=== PATIENT | male | born 1985 | race Caucasian/White ===

== ENCOUNTER 2024-03-15 20:27 | Emergency (ER) | payer BC ==
[~2024-03-15] VITALS: Ht 180.3 cm; Wt 82.7 kg
[2024-03-15 20:32] VITALS: BP 107/71; PULSE 82; TEMP 98; O2SAT 97
[2024-03-15] MEDS ORDERED: HYDR-3965 PO (22:04)
[2024-03-15] MEDS ORDERED: ketorolac trometh inj. 60 MG/2 ML VIAL IM ONE (22:05)
[2024-03-15 22:15] VITALS: RESP 16
[2024-03-15] MEDS: ketorolac trometh. 30mg/ml inj. IM ONE (22:15)
== END 2024-03-15 22:27 | disposition home or self-care (01) ==
LOC: ER 20:28
DX: S52.122A Displaced fracture of head of left radius, initial encounter for closed fracture (principal); V98.8XXA Other specified transport accidents, initial encounter; Y93.89 Activity, other specified; Y92.89 Other specified places as the place of occurrence of the external cause; Y99.8 Other external cause status
CPT/HCPCS: 29105; 73090; 73110; 96372; 99284; J1885; A4565; A6446; A6449